=== PATIENT | male | born 1965 | race Native Hawaiian/Other Pacific Islander ===

== ENCOUNTER 2019-03-28 09:53 | Outpatient (CLI) | payer BC | END 2019-03-28 23:59 | disposition home or self-care (01) | LOC: RAD 09:53 | PROVIDERS: ATTEND Family Medicine | DX: Z76.89 Persons encountering health services in other specified circumstances (principal) | CPT/HCPCS: 71046 ==

== ENCOUNTER 2019-04-25 09:35 | Outpatient (CLI) | payer BC | END 2019-04-25 23:59 | disposition home or self-care (01) | LOC: RAD 09:35 | PROVIDERS: ATTEND Family Medicine | DX: S62.603A Fracture of unspecified phalanx of left middle finger, initial encounter for closed fracture (principal); M19.042 Primary osteoarthritis, left hand; M79.642 Pain in left hand; X58.XXXA Exposure to other specified factors, initial encounter; Y93.89 Activity, other specified; Y92.89 Other specified places as the place of occurrence of the external cause; Y99.8 Other external cause status | CPT/HCPCS: 73130-TC; 73140-TC ==

== ENCOUNTER 2019-09-29 06:56 | Emergency (ER) | payer BC, OTHER ==
[~2019-09-29] VITALS: Ht 167.6 cm; Wt 72.6 kg
[2019-09-29 07:03] VITALS: BP 131/80
--- NOTE | 2019-09-29 07:15 | NUR ---
COVID SWAB SPECIMEBN OBTAINED AND SENT TO LAB.
--- NOTE | 2019-09-29 07:28 | NUR ---
Patient discharged to home in stable condition. Written and verbal after care instructions given. Patient verbalizes understanding of instruction.
== END 2019-09-29 07:29 | disposition home or self-care (01) ==
LOC: ER 06:58
DX: Z11.59 Encounter for screening for other viral diseases (principal)
CPT/HCPCS: 99283; C9803; U0003

== ENCOUNTER 2019-10-06 01:06 | Emergency (ER) | payer OTHER ==
[~2019-10-06] VITALS: Ht 167.6 cm; Wt 72.6 kg
[2019-10-06 01:06] VITALS: BP 134/62
--- NOTE | 2019-10-06 01:31 | NUR ---
COVID SWAB COLLECTED AND SENT TO LAB.
== END 2019-10-06 01:41 | disposition home or self-care (01) ==
LOC: ER 01:07
DX: Z20.828 Contact with and (suspected) exposure to other viral communicable diseases (principal)
CPT/HCPCS: 99283; C9803; U0003

== ENCOUNTER 2019-10-20 02:37 | Emergency (ER) | payer OTHER ==
[~2019-10-20] VITALS: Ht 167.6 cm; Wt 72.6 kg
[2019-10-20 02:39] VITALS: BP 122/84
--- NOTE | 2019-10-20 02:54 | NUR ---
COVID SWAB DONE AND SENT TO LAB
== END 2019-10-20 02:54 | disposition home or self-care (01) ==
LOC: ER 02:38
DX: Z20.828 Contact with and (suspected) exposure to other viral communicable diseases (principal)
CPT/HCPCS: 99283; C9803; U0003

== ENCOUNTER 2019-10-27 03:23 | Emergency (ER) | payer OTHER ==
[~2019-10-27] VITALS: Ht 167.6 cm; Wt 59.0 kg
[2019-10-27 03:24] VITALS: BP 132/61
--- NOTE | 2019-10-27 03:36 | NUR ---
COVID SWAB COLLECT AND SENT TO LAB.
== END 2019-10-27 03:36 | disposition home or self-care (01) ==
LOC: ER 03:23
DX: Z20.828 Contact with and (suspected) exposure to other viral communicable diseases (principal)
CPT/HCPCS: 99283; C9803; U0003

== ENCOUNTER 2019-11-16 10:26 | Emergency (ER) | payer OTHER ==
[~2019-11-16] VITALS: Ht 162.6 cm; Wt 72.6 kg
[2019-11-16 10:43] VITALS: BP 140/81
--- NOTE | 2019-11-16 12:19 | NUR ---
Patient discharged to home in stable condition. Written and verbal after care instructions given. Patient verbalizes understanding of instruction. Pt ambulatory with a steady gait
== END 2019-11-16 12:40 | disposition home or self-care (01) ==
LOC: ER 10:29
DX: Z20.828 Contact with and (suspected) exposure to other viral communicable diseases (principal); R03.0 Elevated blood-pressure reading, without diagnosis of hypertension
CPT/HCPCS: 99283; C9803; U0003

== ENCOUNTER 2019-11-24 21:17 | Emergency (ER) | payer OTHER ==
[~2019-11-24] VITALS: Ht 162.6 cm; Wt 72.6 kg
[2019-11-24 21:19] VITALS: BP 132/64
== END 2019-11-24 21:43 | disposition home or self-care (01) ==
LOC: ER 21:22
DX: Z20.828 Contact with and (suspected) exposure to other viral communicable diseases (principal)
CPT/HCPCS: 99283; C9803; U0003

== ENCOUNTER 2019-11-30 23:33 | Emergency (ER) | payer OTHER ==
[~2019-11-30] VITALS: Ht 162.6 cm; Wt 72.6 kg
[2019-11-30 23:38] VITALS: BP 134/62
== END 2019-12-01 00:13 | disposition home or self-care (01) ==
LOC: ER 23:34
DX: Z20.828 Contact with and (suspected) exposure to other viral communicable diseases (principal)
CPT/HCPCS: 99283; C9803; U0003

== ENCOUNTER 2019-12-10 01:14 | Emergency (ER) | payer OTHER ==
[~2019-12-10] VITALS: Ht 167.6 cm; Wt 72.6 kg
[2019-12-10 01:16] VITALS: BP 128/85
== END 2019-12-10 01:30 | disposition home or self-care (01) ==
LOC: ER 01:16
DX: Z20.828 Contact with and (suspected) exposure to other viral communicable diseases (principal)
CPT/HCPCS: 99283; C9803; U0003

== ENCOUNTER 2019-12-21 07:03 | Emergency (ER) | payer OTHER ==
[~2019-12-21] VITALS: Ht 167.6 cm; Wt 72.6 kg
[2019-12-21 07:09] VITALS: BP 139/77
== END 2019-12-21 07:25 | disposition home or self-care (01) ==
LOC: ER 07:06
DX: Z20.828 Contact with and (suspected) exposure to other viral communicable diseases (principal)
CPT/HCPCS: 99283; C9803; U0003

== ENCOUNTER 2019-12-29 03:51 | Emergency (ER) | payer OTHER ==
[~2019-12-29] VITALS: Ht 167.6 cm; Wt 72.6 kg
[2019-12-29 03:53] VITALS: BP 123/68
== END 2019-12-29 04:26 | disposition home or self-care (01) ==
LOC: ER 03:53
DX: Z20.828 Contact with and (suspected) exposure to other viral communicable diseases (principal)
CPT/HCPCS: 99283; C9803; U0003

== ENCOUNTER 2020-01-05 04:55 | Emergency (ER) | payer OTHER ==
[~2020-01-05] VITALS: Ht 167.6 cm; Wt 72.1 kg
[2020-01-05 05:01] VITALS: BP 123/84
== END 2020-01-05 05:53 | disposition home or self-care (01) ==
LOC: ER 04:56
DX: Z20.828 Contact with and (suspected) exposure to other viral communicable diseases (principal)
CPT/HCPCS: 99283; C9803; U0003

== ENCOUNTER 2020-01-12 19:17 | Emergency (ER) | payer OTHER ==
[~2020-01-12] VITALS: Ht 167.6 cm; Wt 72.6 kg
[2020-01-12 19:18] VITALS: BP 128/75
== END 2020-01-12 19:47 | disposition home or self-care (01) ==
LOC: ER 19:19
DX: Z20.828 Contact with and (suspected) exposure to other viral communicable diseases (principal)
CPT/HCPCS: 99283; C9803; U0003

== ENCOUNTER 2020-01-26 19:05 | Emergency (ER) | payer OTHER ==
[~2020-01-26] VITALS: Ht 167.6 cm; Wt 70.3 kg
[2020-01-26 19:10] VITALS: BP 121/81
== END 2020-01-26 20:03 | disposition home or self-care (01) ==
LOC: ER 19:07
DX: Z20.828 Contact with and (suspected) exposure to other viral communicable diseases (principal)
CPT/HCPCS: 99283; C9803; U0003

== ENCOUNTER 2020-02-02 21:31 | Emergency (ER) | payer OTHER ==
[~2020-02-02] VITALS: Ht 167.6 cm; Wt 74.8 kg
[2020-02-02 21:32] VITALS: BP 124/71
--- NOTE | 2020-02-02 21:51 | NUR ---
LOLITAID SWABBED, SENT TO LAB.
== END 2020-02-02 21:51 | disposition home or self-care (01) ==
LOC: ER 21:32
DX: Z20.828 Contact with and (suspected) exposure to other viral communicable diseases (principal)
CPT/HCPCS: 99283; C9803; U0003

== ENCOUNTER 2020-02-09 03:02 | Emergency (ER) | payer OTHER ==
[~2020-02-09] VITALS: Ht 167.6 cm; Wt 74.8 kg
[2020-02-09 03:04] VITALS: BP 135/64
== END 2020-02-09 03:18 | disposition home or self-care (01) ==
LOC: ER 03:03
DX: Z20.828 Contact with and (suspected) exposure to other viral communicable diseases (principal)
CPT/HCPCS: 99283; C9803; U0003

== ENCOUNTER 2020-02-17 02:53 | Emergency (ER) | payer OTHER ==
[~2020-02-17] VITALS: Ht 167.6 cm; Wt 81.6 kg
[2020-02-17 02:56] VITALS: BP 127/64
== END 2020-02-17 03:18 | disposition home or self-care (01) ==
LOC: ER 02:55
DX: Z20.828 Contact with and (suspected) exposure to other viral communicable diseases (principal)
CPT/HCPCS: 99283; C9803; U0003

== ENCOUNTER 2020-02-23 23:11 | Emergency (ER) | payer OTHER ==
[~2020-02-23] VITALS: Ht 167.6 cm; Wt 70.3 kg
[2020-02-23 23:13] VITALS: BP 132/64
== END 2020-02-23 23:35 | disposition home or self-care (01) ==
LOC: ER 23:13
DX: Z20.828 Contact with and (suspected) exposure to other viral communicable diseases (principal)
CPT/HCPCS: 99283; C9803; U0003

== ENCOUNTER 2020-03-01 22:05 | Emergency (ER) | payer OTHER ==
[~2020-03-01] VITALS: Ht 167.6 cm; Wt 72.6 kg
[2020-03-01 22:05] VITALS: BP 111/68
== END 2020-03-01 23:16 | disposition home or self-care (01) ==
LOC: ER 22:06
DX: Z20.822 Contact with and (suspected) exposure to COVID-19 (principal)
CPT/HCPCS: 99283; C9803; U0003

== ENCOUNTER 2020-03-08 22:20 | Emergency (ER) | payer OTHER ==
[~2020-03-08] VITALS: Ht 167.6 cm; Wt 81.6 kg
[2020-03-08 22:22] VITALS: BP 132/64
== END 2020-03-08 23:20 | disposition home or self-care (01) ==
LOC: ER 22:22
DX: Z20.822 Contact with and (suspected) exposure to COVID-19 (principal)
CPT/HCPCS: 99283; C9803; U0003

== ENCOUNTER 2020-03-10 01:26 | Emergency (ER) | payer OTHER ==
[~2020-03-10] VITALS: Ht 167.6 cm; Wt 81.6 kg
[2020-03-10 01:29] VITALS: BP 125/64
== END 2020-03-10 02:16 | disposition home or self-care (01) ==
LOC: ER 01:27
DX: Z20.822 Contact with and (suspected) exposure to COVID-19 (principal)
CPT/HCPCS: 99283; C9803; U0003

== ENCOUNTER 2020-03-14 21:52 | Emergency (ER) | payer OTHER ==
[~2020-03-14] VITALS: Ht 167.6 cm; Wt 81.6 kg
[2020-03-14 22:01] VITALS: BP 127/64
== END 2020-03-14 22:58 | disposition home or self-care (01) ==
LOC: ER 21:53
DX: Z20.822 Contact with and (suspected) exposure to COVID-19 (principal)
CPT/HCPCS: 99283; C9803; U0003

== ENCOUNTER 2020-03-16 02:28 | Emergency (ER) | payer OTHER ==
[~2020-03-16] VITALS: Ht 167.6 cm; Wt 81.6 kg
[2020-03-16 02:29] VITALS: BP 132/64
== END 2020-03-16 02:49 | disposition home or self-care (01) ==
LOC: ER 02:28
DX: Z20.822 Contact with and (suspected) exposure to COVID-19 (principal)
CPT/HCPCS: 99283; C9803; U0003

== ENCOUNTER 2020-03-26 00:33 | Emergency (ER) | payer OTHER ==
[~2020-03-26] VITALS: Ht 167.6 cm; Wt 81.6 kg
[2020-03-26 00:34] VITALS: BP 114/68
== END 2020-03-26 00:58 | disposition home or self-care (01) ==
LOC: ER 00:38
DX: Z20.822 Contact with and (suspected) exposure to COVID-19 (principal)
CPT/HCPCS: 99283; C9803; U0003

== ENCOUNTER 2020-03-28 23:36 | Emergency (ER) | payer OTHER ==
[~2020-03-28] VITALS: Ht 167.6 cm; Wt 81.6 kg
[2020-03-28 23:45] VITALS: BP 141/82
== END 2020-03-29 00:09 | disposition home or self-care (01) ==
LOC: ER 23:43
DX: Z20.822 Contact with and (suspected) exposure to COVID-19 (principal)
CPT/HCPCS: 99283; C9803; U0003

== ENCOUNTER 2020-03-30 01:47 | Emergency (ER) | payer OTHER ==
[~2020-03-30] VITALS: Ht 167.6 cm; Wt 81.6 kg
[2020-03-30 01:50] VITALS: BP 141/79
== END 2020-03-30 02:36 | disposition home or self-care (01) ==
LOC: ER 01:48
DX: Z20.822 Contact with and (suspected) exposure to COVID-19 (principal)
CPT/HCPCS: 99283; C9803; U0003

== ENCOUNTER 2020-04-04 23:09 | Emergency (ER) | payer OTHER ==
[~2020-04-04] VITALS: Ht 167.6 cm; Wt 81.6 kg
[2020-04-04 23:15] VITALS: BP 129/76
== END 2020-04-04 23:33 | disposition home or self-care (01) ==
LOC: ER 23:24
DX: Z20.822 Contact with and (suspected) exposure to COVID-19 (principal)
CPT/HCPCS: 99283; C9803; U0003

== ENCOUNTER 2020-04-07 01:29 | Emergency (ER) | payer OTHER ==
[~2020-04-07] VITALS: Ht 167.6 cm; Wt 81.6 kg
[2020-04-07 01:37] VITALS: BP 134/81
== END 2020-04-07 03:11 | disposition home or self-care (01) ==
LOC: ER 01:35
DX: Z20.822 Contact with and (suspected) exposure to COVID-19 (principal)
CPT/HCPCS: 99283; C9803; U0003

== ENCOUNTER 2020-04-12 02:01 | Emergency (ER) | payer OTHER ==
[~2020-04-12] VITALS: Ht 167.6 cm; Wt 81.6 kg
[2020-04-12 02:08] VITALS: BP 123/63
== END 2020-04-12 03:07 | disposition home or self-care (01) ==
LOC: ER 02:02
DX: Z20.822 Contact with and (suspected) exposure to COVID-19 (principal)
CPT/HCPCS: 99283; C9803; U0003

== ENCOUNTER 2020-04-13 02:14 | Emergency (ER) | payer OTHER ==
[~2020-04-13] VITALS: Ht 167.6 cm; Wt 81.6 kg
[2020-04-13 02:17] VITALS: BP 136/67
== END 2020-04-13 02:57 | disposition home or self-care (01) ==
LOC: ER 02:15
DX: Z20.822 Contact with and (suspected) exposure to COVID-19 (principal)
CPT/HCPCS: 99283; C9803; U0003

== ENCOUNTER 2020-04-26 01:58 | Emergency (ER) | payer OTHER ==
[~2020-04-26] VITALS: Ht 167.6 cm; Wt 81.6 kg
[2020-04-26 02:04] VITALS: BP 132/66
== END 2020-04-26 02:27 | disposition home or self-care (01) ==
LOC: ER 01:58
DX: Z20.822 Contact with and (suspected) exposure to COVID-19 (principal)
CPT/HCPCS: 99283; C9803; U0003

== ENCOUNTER 2020-04-28 00:36 | Emergency (ER) | payer OTHER ==
[~2020-04-28] VITALS: Ht 167.6 cm; Wt 81.6 kg
[2020-04-28 00:43] VITALS: BP 134/79
== END 2020-04-28 01:28 | disposition home or self-care (01) ==
LOC: ER 00:38
DX: Z20.822 Contact with and (suspected) exposure to COVID-19 (principal)
CPT/HCPCS: 99283; C9803; U0003

== ENCOUNTER 2020-05-05 01:07 | Emergency (ER) | payer OTHER ==
[~2020-05-05] VITALS: Ht 167.6 cm; Wt 81.6 kg
[2020-05-05 01:08] VITALS: BP 114/76
== END 2020-05-05 02:18 | disposition home or self-care (01) ==
LOC: ER 01:13
DX: Z20.822 Contact with and (suspected) exposure to COVID-19 (principal)
CPT/HCPCS: 99283; C9803; U0003

== ENCOUNTER 2020-05-11 23:28 | Emergency (ER) | payer OTHER ==
[~2020-05-11] VITALS: Ht 167.6 cm; Wt 81.6 kg
[2020-05-11 23:30] VITALS: BP 135/82
== END 2020-05-11 23:51 | disposition home or self-care (01) ==
LOC: ER 23:29
DX: Z20.822 Contact with and (suspected) exposure to COVID-19 (principal)
CPT/HCPCS: 99283; C9803; U0003

== ENCOUNTER 2020-05-20 01:49 | Emergency (ER) | payer OTHER ==
[~2020-05-20] VITALS: Ht 167.6 cm; Wt 81.6 kg
[2020-05-20 01:49] VITALS: BP 129/63
== END 2020-05-20 02:54 | disposition home or self-care (01) ==
LOC: ER 01:54
DX: Z20.822 Contact with and (suspected) exposure to COVID-19 (principal)
CPT/HCPCS: 99283; C9803; U0003

== ENCOUNTER 2020-05-31 02:35 | Emergency (ER) | payer OTHER ==
[~2020-05-31] VITALS: Ht 167.6 cm; Wt 81.6 kg
[2020-05-31 02:36] VITALS: BP 128/73
== END 2020-05-31 02:57 | disposition home or self-care (01) ==
LOC: ER 02:37
DX: Z20.822 Contact with and (suspected) exposure to COVID-19 (principal)
CPT/HCPCS: 99283; C9803; U0003

== ENCOUNTER 2020-06-05 09:56 | Outpatient (CLI) | payer BC ==
[2020-06-05 10:56] LABS: BASOPHILS % (AUTO) 0.5 % (0.0-2.0); EOSINOPHILS % (AUTO) 1.7 % (0.0-6.0); HEMATOCRIT 45 % (39-51); HEMOGLOBIN 15.2 g/dL (13.5-17.5); LYMPHOCYTES % (AUTO) 34.5 % (20.0-44.0); MEAN CORPUSCULAR HGB CONC 34 g/dl (31.0-36.0); MEAN CORPUSCULAR VOLUME 91 fL (80-96); MONOCYTES # (AUTO) 0.4 /CMM (0.1-1.30); MONOCYTES % (AUTO) 6.4 % (2.0-12.0); NEUTROPHILS # (AUTO) 3.2 /CMM (1.8-8.9); NEUTROPHILS % (AUTO) 56.9 % (43.0-81.0); PLATELET COUNT (AUTO) 303 /CMM (150-450); RED BLOOD CELL COUNT(AUTO) 4.94 MIL/uL (4.5-6.0); WHITE BLOOD COUNT (AUTO) 5.7 K/uL (4.3-11.0)
[2020-06-05 11:15] LABS: ALBUMIN 4.2 g/dL (3.4-5.0); BILIRUBIN,TOTAL 0.4 mg/dL (0.2-1.0); CALCIUM, SERUM 8.7 mg/dL (8.5-10.1); CREATININE 0.8 mg/dL (0.6-1.3); POTASSIUM 3.8 mmol/L (3.5-5.1); TOTAL PROTEIN, SERUM 8.7 g/dL (6.4-8.2)
[2020-06-05 11:22] LABS: FREE T4 (FREE THYROXINE) 0.94 ng/dL (0.76-1.46); THYROID STIMULATING HORMONE 1.131 uIU/mL (0.358-3.74); URIC ACID 5.9 mg/dL (2.6-7.2)
[2020-06-05 11:46] LABS: PROSTATE SPECIFIC ANTIGEN SCR 1.23 ng/mL (0.00-4.00)
[2020-06-05 11:52] LABS: BILIRUBIN,URINE NEGATIVE (NEGATIVE); COLOR,URINE STRAW (YELLOW); LEUKOCYTE ESTERASE ,URINE NEGATIVE (NEGATIVE); NITRITE, URINE NEGATIVE (NEGATIVE); PH,URINE 5.5 (5.0-8.0); PROTEIN,URINE NEGATIVE (NEGATIVE); UGLUCOSE NEGATIVE (NEGATIVE); UROBILINOGEN,URINE 0.2 EU/dL (0.2)
[2020-06-05 13:09] LABS: BACTERIA,URINE Rare /HPF (None Seen); RBC,URINE 0-2 /HPF (0-2); SQUAMOUS EPITHELIAL CELL,UR Rare /HPF (None Seen); WBC,URINE NONE SEEN /HPF (0-3)
== END 2020-06-05 23:59 | disposition home or self-care (01) ==
LOC: LAB 09:56
PROVIDERS: ATTEND Family Medicine
DX: M19.032 Primary osteoarthritis, left wrist (principal); M10.9 Gout, unspecified; Z00.01 Encounter for general adult medical examination with abnormal findings; Z82.49 Family history of ischemic heart disease and other diseases of the circulatory system
CPT/HCPCS: 36415; 73110; 80053-TC; 80061-TC; 81001; 82306; 84153-TC; 84439-TC; 84443-TC; 84550-TC; 85025-TC; 86803

== ENCOUNTER 2020-06-07 04:18 | Emergency (ER) | payer BC, OTHER ==
[~2020-06-07] VITALS: Ht 167.6 cm; Wt 81.6 kg
[2020-06-07 04:18] VITALS: BP 129/75
== END 2020-06-07 05:11 | disposition home or self-care (01) ==
LOC: ER 04:24
DX: Z20.822 Contact with and (suspected) exposure to COVID-19 (principal)
CPT/HCPCS: 99283; C9803; U0003

== ENCOUNTER 2020-06-09 03:55 | Emergency (ER) | payer OTHER, BC ==
[~2020-06-09] VITALS: Ht 167.6 cm; Wt 81.6 kg
[2020-06-09 03:55] VITALS: BP 121/65
== END 2020-06-09 05:15 | disposition home or self-care (01) ==
LOC: ER 03:56
DX: Z20.822 Contact with and (suspected) exposure to COVID-19 (principal)
CPT/HCPCS: 99283; C9803; U0003

== ENCOUNTER 2020-06-15 02:19 | Emergency (ER) | payer BC, OTHER ==
[~2020-06-15] VITALS: Ht 167.6 cm; Wt 77.1 kg
[2020-06-15 02:20] VITALS: BP 119/72
== END 2020-06-15 02:37 | disposition home or self-care (01) ==
LOC: ER 02:20
DX: Z20.822 Contact with and (suspected) exposure to COVID-19 (principal)
CPT/HCPCS: 99283; C9803; U0003

== ENCOUNTER 2020-06-22 02:51 | Emergency (ER) | payer OTHER ==
[~2020-06-22] VITALS: Ht 167.6 cm; Wt 77.1 kg
[2020-06-22 02:51] VITALS: BP 123/65
== END 2020-06-22 03:14 | disposition home or self-care (01) ==
LOC: ER 02:54
DX: Z20.822 Contact with and (suspected) exposure to COVID-19 (principal)
CPT/HCPCS: 99283; C9803; U0003

== ENCOUNTER 2020-07-01 02:36 | Emergency (ER) | payer OTHER ==
[~2020-07-01] VITALS: Ht 167.6 cm; Wt 77.1 kg
[2020-07-01 02:36] VITALS: BP 121/69
== END 2020-07-01 03:18 | disposition home or self-care (01) ==
LOC: ER 02:41
DX: Z20.822 Contact with and (suspected) exposure to COVID-19 (principal)
CPT/HCPCS: 99283; C9803; U0003

== ENCOUNTER 2020-07-06 02:41 | Emergency (ER) | payer OTHER ==
[~2020-07-06] VITALS: Ht 167.6 cm; Wt 77.1 kg
[2020-07-06 02:41] VITALS: BP 111/75
== END 2020-07-06 03:09 | disposition home or self-care (01) ==
LOC: ER 02:46
DX: Z20.822 Contact with and (suspected) exposure to COVID-19 (principal)
CPT/HCPCS: 99283; C9803; U0003

== ENCOUNTER 2020-07-15 03:33 | Emergency (ER) | payer OTHER ==
[~2020-07-15] VITALS: Ht 167.6 cm; Wt 77.1 kg
[2020-07-15 03:35] VITALS: BP 128/85
== END 2020-07-15 04:11 | disposition home or self-care (01) ==
LOC: ER 03:37
DX: Z20.822 Contact with and (suspected) exposure to COVID-19 (principal)
CPT/HCPCS: 99283; C9803; U0003

== ENCOUNTER 2020-07-21 23:53 | Emergency (ER) | payer OTHER ==
[~2020-07-21] VITALS: Ht 167.6 cm; Wt 77.1 kg
[2020-07-21 23:58] VITALS: BP 132/64
== END 2020-07-22 00:30 | disposition home or self-care (01) ==
LOC: ER 23:55
DX: Z20.822 Contact with and (suspected) exposure to COVID-19 (principal)
CPT/HCPCS: 99283; C9803; U0003

== ENCOUNTER 2020-07-30 00:39 | Emergency (ER) | payer OTHER ==
[~2020-07-30] VITALS: Ht 167.6 cm; Wt 77.1 kg
[2020-07-30 00:51] VITALS: BP 154/70
== END 2020-07-30 01:29 | disposition home or self-care (01) ==
LOC: ER 00:43
DX: Z20.822 Contact with and (suspected) exposure to COVID-19 (principal)
CPT/HCPCS: 99283; C9803; U0003

== ENCOUNTER 2020-08-04 02:23 | Emergency (ER) | payer OTHER ==
[~2020-08-04] VITALS: Ht 167.6 cm; Wt 77.1 kg
[2020-08-04 02:28] VITALS: BP 122/77
== END 2020-08-04 03:25 | disposition home or self-care (01) ==
LOC: ER 02:28
DX: Z20.822 Contact with and (suspected) exposure to COVID-19 (principal)
CPT/HCPCS: 99283; C9803; U0003

== ENCOUNTER 2020-08-12 00:34 | Emergency (ER) | payer OTHER ==
[~2020-08-12] VITALS: Ht 167.6 cm; Wt 77.1 kg
[2020-08-12 00:54] VITALS: BP 135/85
== END 2020-08-12 01:23 | disposition home or self-care (01) ==
LOC: ER 00:35
DX: Z20.822 Contact with and (suspected) exposure to COVID-19 (principal)
CPT/HCPCS: 99283; C9803; U0003

== ENCOUNTER 2020-10-23 10:12 | Outpatient (CLI) | payer BC ==
[2020-10-23 11:32] LABS: BASOPHILS % (AUTO) 0.6 % (0.0-2.0); EOSINOPHILS % (AUTO) 1.5 % (0.0-6.0); HEMATOCRIT 46 % (39-51); HEMOGLOBIN 15.7 g/dL (13.5-17.5); LYMPHOCYTES # (AUTO) 2.1 K/uL (0.8-4.8); LYMPHOCYTES % (AUTO) 38.9 % (20.0-44.0); MEAN CORPUSCULAR HGB CONC 34 g/dl (31.0-36.0); MEAN CORPUSCULAR VOLUME 92 fL (80-96); MONOCYTES # (AUTO) 0.3 K/uL (0.1-1.30); MONOCYTES % (AUTO) 6.2 % (2.0-12.0); NEUTROPHILS # (AUTO) 2.8 K/uL (1.8-8.9); NEUTROPHILS % (AUTO) 52.8 % (43.0-81.0); PLATELET COUNT (AUTO) 297 K/uL (150-450); WHITE BLOOD COUNT (AUTO) 5.3 K/uL (4.3-11.0)
[2020-10-23 11:35] LABS: THYROID STIMULATING HORMONE 1.467 uIU/mL (0.358-3.74); URIC ACID 7.1 mg/dL (2.6-7.2)
[2020-10-23 11:44] LABS: ALBUMIN 4.6 g/dL (3.4-5.0); BILIRUBIN,TOTAL 0.7 mg/dL (0.2-1.0); CALCIUM, SERUM 9.5 mg/dL (8.5-10.1); CREATININE 0.8 mg/dL (0.6-1.3); POTASSIUM 3.9 mmol/L (3.5-5.1); TOTAL PROTEIN, SERUM 9.2 g/dL (6.4-8.2)
== END 2020-10-23 23:59 | disposition home or self-care (01) ==
LOC: LAB 10:12
PROVIDERS: ATTEND Family Medicine
DX: E78.2 Mixed hyperlipidemia (principal); E55.9 Vitamin D deficiency, unspecified; I51.7 Cardiomegaly; M10.9 Gout, unspecified; Z79.899 Other long term (current) drug therapy
CPT/HCPCS: 36415; 80053-TC; 80061-TC; 82306; 84439-TC; 84443-TC; 84550-TC; 85025-TC

== ENCOUNTER 2020-11-03 09:58 | Outpatient (CLI) | payer BC ==
[2020-11-03] MEDS ORDERED: IV NS 0.9% 250 ML IV ONE (10:24)
[2020-11-03] MEDS ORDERED: IOHEXOL-350 100 ML VIAL IV ONE (10:24)
[2020-11-03] MEDS ORDERED: CT SWABBABLE VALVE TRANS SET 1 EA INFUS.SET MC ONE (10:24)
== END 2020-11-03 23:59 | disposition home or self-care (01) ==
LOC: CT 09:58
PROVIDERS: ATTEND Family Medicine
DX: I51.7 Cardiomegaly (principal); E04.1 Nontoxic single thyroid nodule; K76.89 Other specified diseases of liver; I77.810 Thoracic aortic ectasia
CPT/HCPCS: 71260; J7050; Q9967

== ENCOUNTER 2020-11-05 01:20 | Emergency (ER) | payer BC, OTHER ==
[~2020-11-05] VITALS: Ht 167.6 cm; Wt 77.1 kg
[2020-11-05 01:22] VITALS: BP 133/68
== END 2020-11-05 03:27 | disposition home or self-care (01) ==
LOC: ER 01:24
DX: Z20.822 Contact with and (suspected) exposure to COVID-19 (principal)
CPT/HCPCS: 99283; C9803; U0003

== ENCOUNTER 2024-05-24 11:58 | Outpatient (CLI) | payer BC ==
[2024-05-24 13:22] LABS: CREATININE 0.9 mg/dL (0.6-1.3)
== END 2024-05-24 23:59 | disposition home or self-care (01) ==
LOC: LAB 11:58
PROVIDERS: ATTEND Family Medicine
DX: R16.0 Hepatomegaly, not elsewhere classified (principal)
CPT/HCPCS: 36415; 82565-TC; 84520-TC

== ENCOUNTER 2024-12-22 09:09 | Emergency (ER) | payer BC ==
[~2024-12-22] VITALS: Ht 167.6 cm; Wt 77.1 kg
[2024-12-22] MEDS ORDERED: IBUP-1490 PO (13:26)
[2024-12-22 13:39] VITALS: BP 119/81; TEMP 98.1; O2SAT 99
== END 2024-12-22 13:40 | disposition home or self-care (01) ==
LOC: ER 09:17
DX: S63.501A Unspecified sprain of right wrist, initial encounter (principal); S00.83XA Contusion of other part of head, initial encounter; M10.9 Gout, unspecified; E78.00 Pure hypercholesterolemia, unspecified; W01.198A Fall on same level from slipping, tripping and stumbling with subsequent striking against other object, initial encounter; Y93.67 Activity, basketball; Y92.89 Other specified places as the place of occurrence of the external cause; Y99.8 Other external cause status
CPT/HCPCS: 70450-TC; 70486-TC; 73110